=== PATIENT | male | born 2000 | race Caucasian/White ===

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

== ENCOUNTER 2024-03-01 11:24 | Emergency (ER) | payer OTHER ==
[~2024-03-01] VITALS: Ht 157.5 cm; Wt 40.8 kg
[2024-03-01 11:29] VITALS: BP 119/56; PULSE 129; RESP 19; TEMP 101.9; O2SAT 98
[2024-03-01] MEDS: ACETAMINOPHEN EXTRA STRENGTH 500 MG TAB PO ONE (12:03)
[2024-03-01] MEDS ORDERED: ACET-10509 PO (12:18)
[2024-03-01] MEDS ORDERED: IBUP-2213 PO (12:18)
[2024-03-01] MEDS ORDERED: BENZ100C6 PO (12:18)
[2024-03-01 12:44] VITALS: BP 101/52; PULSE 101; RESP 20; TEMP 99.2; O2SAT 97
[2024-03-01 14:50] LABS: FLU A ANTIGEN negative (NEGATIVE); FLU B ANTIGEN NEGATIVE (NEGATIVE)
[2024-03-01 15:18] LABS: COVID19 ANTIGEN SOFIA FIA NEGATIVE (NEGATIVE)
== END 2024-03-01 12:44 | disposition home or self-care (01) ==
LOC: MED 11:24
DX: B34.9 Viral infection, unspecified (principal); Z20.822 Contact with and (suspected) exposure to COVID-19; K21.9 Gastro-esophageal reflux disease without esophagitis; Z79.1 Long term (current) use of non-steroidal anti-inflammatories (NSAID); Z79.899 Other long term (current) drug therapy
CPT/HCPCS: 99283